=== PATIENT | female | born 1995 | race Caucasian/White ===

== ENCOUNTER 2017-11-26 13:41 | Inpatient (IN) ==
[2017-11-26] MEDS ORDERED: ONDANSETRON 4 MG/2 ML VIAL IV PRN (15:19)
[2017-11-26] MEDS ORDERED: MEPERIDINE 50 MG/1 ML VIAL IV PRN (15:19)
[2017-11-26] MEDS ORDERED: BUTORPHANOL 2 MG/ML VIAL IV PRN (15:19)
[2017-11-26] MEDS ORDERED: DINOPROSTONE VAG GEL 10 MG SYRINGE VAG ONE (15:21)
[2017-11-26 15:51] LABS: Basophils % 0.3 % (0.0-0.8); Eosinophils # 0.1 10*3/uL (0.0-0.87); Hematocrit 30.2 VOL% (35.7-47.0); Hemoglobin 9.8 GM/DL (12.0-16.0); Immature Granulocytes % 0.6 %; Immature Granulocytes Absolute 0.06 #; Lymphocytes # 1.3 10*3/uL (1.4-4.0); Lymphocytes % 13.7 % (21.3-54.2); Mean Corpuscular HGB Conc 32.5 GM/DL (32-36); Mean Corpuscular Hemoglobin 28 PG (27-34); Mean Platelet Volume 11.5 FL (9.6-12.0); Monocytes # 0.8 10*3/uL (0.11-0.8); Neutrophils # 7.3 10*3/uL (1.4-7.4); Neutrophils % 76.4 % (38.7-73.9); Platelet Count 215 T/CUMM (130-400); Red Blood Count 3.47 MC/CUMM (3.8-5.5); Red Cell Distribution Width 13.9 % (9.3-17.3); White Blood Count 9.6 T/CUMM (4-12)
[2017-11-26 16:25] LABS: Albumin 2.9 G/DL (3.4-5.0); Bilirubin,Total 0.6 MG/DL (0.2-1.0); Calcium 7.8 MG/DL (8.5-10.1); Osmolality,Calculated 279.3 MOS/KG (273-304); Potassium 3.4 MMOL/L (3.5-5.1); Total Protein 6.3 G/DL (6.4-8.3); Uric Acid 4.6 MG/DL (2.6-6.0)
[2017-11-26] MEDS ORDERED: LACTATED RINGERS 1,000 ML IV ONE (19:20)
[2017-11-26] MEDS ORDERED: PROMETHAZINE 25 MG/1 ML VIAL IM ONE (19:43)
[2017-11-26] MEDS ORDERED: ONDANSETRON 4 MG/2 ML VIAL IV ONE (19:43)
[2017-11-26] MEDS ORDERED: diphenhydrAMINE 50 MG/1 ML VIAL IV PRN ×2 (19:43)
[2017-11-26] MEDS ORDERED: hydrOXYzine HCL 25 MG/1 ML VIAL IM PRN (19:43)
[2017-11-26] MEDS ORDERED: ePHEDrine 50 MG/ML AMP IV PRN (19:43)
[2017-11-26] MEDS ORDERED: FAMOTIDINE 20 MG/2 ML VIAL IV ONE ×2 (19:43→20:00)
[2017-11-26] MEDS ORDERED: CITRIC ACID/SODIUM CITRATE 30 ML UDCUP PO ONE (19:43)
[2017-11-26] MEDS ORDERED: fentaNYL 2 MCG/ROPIV 0.2% EPID 150 ML EPIDURAL SCH ×2 (20:00)
[2017-11-26] MEDS: LACTATED RINGERS 1,000 ML IV SCH (20:31)
[2017-11-27] MEDS ORDERED: OXYTOCIN/LR 20 UNIT/1,000 ML BAG IV SCH (02:00)
[2017-11-27] MEDS: LACTATED RINGERS 1,000 ML IV SCH (04:28)
[2017-11-27] MEDS ORDERED: BUTORPHANOL 1 MG/ML VIAL ONE (08:58)
[2017-11-27] MEDS ORDERED: LIDOCAINE 1% 50 ML VIAL ONE (08:58)
[2017-11-27 09:54] LABS: Cord Arterial Blood HCO3 18.3 MMOL/L
[2017-11-27 09:55] LABS: Cord Venous Blood HCO3 23.5 MMOL/L; Cord Venous Blood PCO2 51.6 MMHG; Cord Venous Blood PO2 25.7 MMHG
[2017-11-27] MEDS ORDERED: DIPH/TET/ACEL PERT BOOSTER VACCINE 0.5 ML VIAL IM ONE (10:37)
[2017-11-27] MEDS ORDERED: OXYTOCIN/LR 20 UNIT/1,000 ML BAG IV ONE (10:37)
[2017-11-27] MEDS ORDERED: ONDANSETRON 4 MG/2 ML VIAL IV PRN (10:37)
[2017-11-27] MEDS ORDERED: BENZOCAINE 20%/MENTHOL 0.5% SPRAY 56 GM CAN TOP PRN (10:37)
[2017-11-27] MEDS ORDERED: HYDROCORTISONE 2.5% RECTAL CREAM 30 GM TUBE TOP PRN (10:37)
[2017-11-27] MEDS ORDERED: WITCH HAZEL PADS 100/JAR TOP PRN (10:37)
[2017-11-27] MEDS ORDERED: LANOLIN 50% CREAM 0.3 OZ TUBE TOP PRN (10:37)
[2017-11-27] MEDS ORDERED: BISACODYL 10 MG SUPP RECTAL PRN (10:37)
[2017-11-27] MEDS ORDERED: ACETAMINOPHEN 325 MG TABLET PO PRN (10:37)
[2017-11-27] MEDS ORDERED: RHO(D) IMMUNE GLOBULIN 300 MCG SYRINGE IM ONE (10:37)
[2017-11-27] MEDS ORDERED: MEASLES/MUMPS/RUBELLA VACCINE 0.5 ML VIAL SUBCUT ONE (10:37)
[2017-11-27] MEDS ORDERED: oxyCODONE/ACETAMINOPHEN 5-325 MG TABLET PO PRN (10:37)
[2017-11-27] MEDS: oxyCODONE/ACETAMINOPHEN 5-325 MG TABLET PO PRN ×2 (11:12→21:28)
[2017-11-27] MEDS: IBUPROFEN 800 MG TABLET PO PRN (11:14)
[2017-11-27] MEDS: DOCUSATE SODIUM 100 MG CAPSULE PO SCH (21:28)
[2017-11-28 03:24] LABS: Basophils # 0.1 10*3/uL (0.0-0.2); Basophils % 0.4 % (0.0-0.8); Eosinophils # 0.1 10*3/uL (0.0-0.87); Hematocrit 28.3 VOL% (35.7-47.0); Hemoglobin 8.6 GM/DL (12.0-16.0); Immature Granulocytes % 0.9 %; Immature Granulocytes Absolute 0.11 #; Lymphocytes # 2.1 10*3/uL (1.4-4.0); Lymphocytes % 16.8 % (21.3-54.2); Mean Corpuscular HGB Conc 30.4 GM/DL (32-36); Mean Corpuscular Hemoglobin 27 PG (27-34); Mean Corpuscular Volume 87.9 FL (87-102); Mean Platelet Volume 11.7 FL (9.6-12.0); Monocytes # 1.4 10*3/uL (0.11-0.8); Monocytes % 11.2 % (1.7-12.7); Neutrophils # 8.9 10*3/uL (1.4-7.4); Neutrophils % 69.7 % (38.7-73.9); Platelet Count 171 T/CUMM (130-400); Red Blood Count 3.22 MC/CUMM (3.8-5.5); Red Cell Distribution Width 14.1 % (9.3-17.3); White Blood Count 12.7 T/CUMM (4-12)
[2017-11-28] MEDS: IBUPROFEN 800 MG TABLET PO PRN ×2 (08:27→17:48)
[2017-11-28] MEDS: DOCUSATE SODIUM 100 MG CAPSULE PO SCH ×2 (08:27→22:31)
[2017-11-28] MEDS: FERROUS SULFATE 325 MG TABLET PO SCH (22:33)
[2017-11-29] MEDS: IBUPROFEN 800 MG TABLET PO PRN ×2 (02:58→09:04)
[2017-11-29 08:36] VITALS: BP 132/85
[2017-11-29] MEDS: FERROUS SULFATE 325 MG TABLET PO SCH (09:04)
[2017-11-29] MEDS: DOCUSATE SODIUM 100 MG CAPSULE PO SCH (09:04)
== END 2017-11-29 12:10 | disposition home or self-care (01) | DRG 775 ==
LOC: N.LDOUT 13:41 → N.LD 13:43 → N.OB 11-27 17:50
PROVIDERS: ADMIT Obstetrics & Gynecology; ATTEND Obstetrics & Gynecology

== ENCOUNTER 2020-02-08 21:38 | Observation (INO) ==
[2020-02-08] MEDS ORDERED: SODIUM CHLORIDE 0.9% 500 ML IV STA (22:06)
[2020-02-08 23:05] LABS: Basophils % 0.5 % (0.0-0.8); Eosinophils # 0.1 10*3/uL (0.0-0.87); Eosinophils % 1.7 % (0.00-10.9); Hematocrit 33.5 VOL% (35.7-47.0); Hemoglobin 11.4 GM/DL (12.0-16.0); Immature Granulocytes % 0.3 %; Immature Granulocytes Absolute 0.02 #; Lymphocytes # 1.6 10*3/uL (1.4-4.0); Mean Corpuscular Volume 89.1 FL (87-102); Mean Platelet Volume 11.2 FL (9.6-12.0); Monocytes % 10.9 % (1.7-12.7); Neutrophils % 59.6 % (38.7-73.9); Platelet Count 170 T/CUMM (130-400); Red Blood Count 3.76 MC/CUMM (3.8-5.5); Red Cell Distribution Width 12.2 % (9.3-17.3); White Blood Count 5.9 T/CUMM (4-12)
[2020-02-08 23:09] LABS: Bacteria,Urine Occasional /HPF (Few); Bilirubin,Urine Negative (Negative); Blood, Urine Large mg/dL (Negative); Glucose,Urine (UA) Negative (Negative); Ketones,Urine Negative (Negative); Nitrite,Urine Negative (Negative); Protein,Urine Negative; RBC,Urine <1 /HPF (0-4); Squamous Epithelial Cell,Urine Occasional /HPF (0-10); Urine Appearance CLEAR (Clear); Urine Color Straw (Yellow); Urine Specific Gravity 1.003 (1.001-1.035); Urine Urobilinogen < 2.0 EU/DL (0.2-1.0); WBC,Urine 1 /HPF (0-6)
[2020-02-08 23:23] LABS: INR 0.9
[2020-02-08 23:27] LABS: Alanine Aminotransferase 18 U/L (13-56); Albumin 3.3 G/DL (3.4-5.0); Alkaline Phosphatase 70 U/L (45-117); Aspartate Amino Transferase 19 U/L (0-37); Bilirubin,Total < 0.39 MG/DL (0.2-1.0); Blood Urea Nitrogen 4 MG/DL (7-18); Calcium 8.4 MG/DL (8.5-10.1); Estimated Glom Filtration Rate 142 ML/MIN; Glucose 95 MG/DL (74-106); Osmolality,Calculated 271.7 MOS/KG (273-304); Total Protein 7.1 G/DL (6.4-8.3)
[2020-02-09] MEDS ORDERED: ACETAMINOPHEN/CODEINE 300-30 MG TABLET PO PRN (00:28)
[2020-02-09] MEDS ORDERED: ONDANSETRON 4 MG/2 ML VIAL IV PRN (00:28)
[2020-02-09] MEDS ORDERED: SODIUM CHLORIDE 0.9% 1,000 ML IV SCH (00:28)
[2020-02-09] MEDS ORDERED: LACTATED RINGERS 1,000 ML IV SCH (01:00)
[2020-02-09] MEDS: AMPICILLIN INJ 2,000 MG in SODIUM CHLORIDE 0.9% 100 ML IV SCH ×2 (02:06→07:47)
[2020-02-09] MEDS ORDERED: ACETAMINOPHEN 325 MG TABLET PO PRN (07:37)
[2020-02-09 08:40] VITALS: BP 128/89
[2020-02-09] MEDS ORDERED: INFLUENZA VIRUS VACCINE 0.5 ML SYRINGE IM ONE (10:24)
== END 2020-02-09 10:50 | disposition home or self-care (01) ==
LOC: N.EDINP 21:38 → N.ED 21:38 → N.EDINP 02-09 00:10 → N.OB 02-09 00:27
PROVIDERS: ADMIT Obstetrics & Gynecology; ATTEND Obstetrics & Gynecology

== ENCOUNTER 2020-07-24 09:03 | Inpatient (IN) ==
[2020-07-24] MEDS ORDERED: MEPERIDINE 50 MG/1 ML VIAL IV PRN (09:36)
[2020-07-24] MEDS ORDERED: PROMETHAZINE 25 MG/1 ML VIAL IM ONE (09:37)
[2020-07-24] MEDS: LACTATED RINGERS 1,000 ML IV SCH ×2 (09:59→23:15)
[2020-07-24] MEDS: ACETAMINOPHEN 325 MG TABLET PO PRN (15:41)
[2020-07-25] MEDS ORDERED: BUTORPHANOL 2 MG/ML VIAL IV PRN (00:01)
[2020-07-25] MEDS ORDERED: MEPERIDINE 50 MG/1 ML VIAL IM PRN (00:01)
[2020-07-25] MEDS ORDERED: ONDANSETRON 4 MG/2 ML VIAL IV PRN ×2 (00:01→17:20)
[2020-07-25 01:22] LABS: Albumin 2.3 G/DL (3.4-5.0); Bilirubin,Total 0.7 MG/DL (0.2-1.0); Calcium 8.1 MG/DL (8.5-10.1); Osmolality,Calculated 270.7 MOS/KG (273-304); Potassium 3.8 MMOL/L (3.5-5.1); Total Protein 5.9 G/DL (5.0-7.5)
[2020-07-25 01:24] LABS: Basophils % 0.2 % (0.0-0.8); Eosinophils # 0.1 10*3/uL (0.0-0.87); Eosinophils % 0.6 % (0.00-10.9); Hematocrit 31.4 VOL% (35.7-47.0); Hemoglobin 10.4 GM/DL (12.0-16.0); Immature Granulocytes % 0.5 %; Immature Granulocytes Absolute 0.04 #; Lymphocytes # 1.3 10*3/uL (1.4-4.0); Lymphocytes % 15.4 % (21.3-54.2); Mean Corpuscular HGB Conc 33.1 GM/DL (32-36); Mean Corpuscular Volume 84.4 FL (87-102); Mean Platelet Volume 12.5 FL (9.6-12.0); Monocytes % 12.6 % (1.7-12.7); Neutrophils % 70.7 % (38.7-73.9); Platelet Count 159 T/CUMM (130-400); Red Blood Count 3.72 MC/CUMM (3.8-5.5); Red Cell Distribution Width 14.5 % (9.3-17.3); White Blood Count 8.7 T/CUMM (4-12)
[2020-07-25] MEDS: fentaNYL 2 MCG/ROPIV 0.2% EPID 100 ML EPIDURAL SCH ×2 (06:17→15:34)
[2020-07-25] MEDS ORDERED: ePHEDrine 50 MG/ML VIAL IV PRN (06:30)
[2020-07-25] MEDS ORDERED: diphenhydrAMINE 50 MG/1 ML VIAL IV PRN ×2 (06:30)
[2020-07-25] MEDS ORDERED: FAMOTIDINE 20 MG/2 ML VIAL IV ONE (06:30)
[2020-07-25] MEDS ORDERED: CITRIC ACID/SODIUM CITRATE 30 ML UDCUP PO ONE (06:30)
[2020-07-25] MEDS ORDERED: ONDANSETRON 4 MG/2 ML VIAL IV ONE (06:30)
[2020-07-25] MEDS ORDERED: hydrOXYzine HCL 25 MG/1 ML VIAL IM PRN (06:30)
[2020-07-25] MEDS ORDERED: NALOXONE 0.4 MG/ML VIAL IV PRN (06:30)
[2020-07-25] MEDS ORDERED: PROMETHAZINE 25 MG/1 ML VIAL IM ONE (06:30)
[2020-07-25] MEDS: LACTATED RINGERS 1,000 ML IV SCH ×2 (07:24→15:35)
[2020-07-25 08:05] LABS: Bilirubin,Urine Negative (Negative); Blood, Urine Negative (Negative); Glucose,Urine (UA) Negative (Negative); Ketones,Urine Negative (Negative); Mucus,Urine Occasional /LPF (Occasional); Nitrite,Urine Negative (Negative); Protein,Urine Negative; RBC,Urine 5 /HPF (0-4); Urine Appearance CLEAR (Clear); Urine Color Yellow (Yellow); Urine Specific Gravity 1.009 (1.001-1.035); Urine Urobilinogen < 2.0 EU/DL (0.2-1.0); WBC,Urine <1 /HPF (0-6)
[2020-07-25] MEDS ORDERED: OXYTOCIN/LR 20 UNIT/1,000 ML BAG IV SCH (10:00)
[2020-07-25] MEDS: AMPICILLIN INJ 2,000 MG in SODIUM CHLORIDE 0.9% 100 ML IV SCH ×2 (10:13→16:00)
[2020-07-25] MEDS ORDERED: TRANEXAMIC ACID 1,000 MG/10 ML VIAL ONE (16:05)
[2020-07-25] MEDS ORDERED: OXYTOCIN/LR 20 UNIT/1,000 ML BAG IV ONE ×2 (16:05→17:20)
[2020-07-25] MEDS ORDERED: miSOPROStoL 200 MCG TABLET ONE (16:05)
[2020-07-25] MEDS ORDERED: CARBOPROST TROMETHAMINE 250 MCG/ML AMP IM ONE (16:06)
[2020-07-25] MEDS ORDERED: METHYLERGONOVINE 0.2 MG/1 ML AMP ONE (16:06)
[2020-07-25 16:39] LABS: Cord Arterial Blood HCO3 24.1 MMOL/L
[2020-07-25 16:42] LABS: Cord Venous Blood PCO2 40.3 MMHG
[2020-07-25] MEDS ORDERED: HYDROCORTISONE 2.5% RECTAL CREAM 30 GM TUBE TOP PRN (17:20)
[2020-07-25] MEDS ORDERED: BISACODYL 10 MG SUPP RECTAL PRN (17:20)
[2020-07-25] MEDS ORDERED: LANOLIN 50% CREAM 0.3 OZ TUBE TOP PRN (17:20)
[2020-07-25] MEDS ORDERED: WITCH HAZEL PADS 100/JAR TOP PRN (17:20)
[2020-07-25] MEDS ORDERED: BENZOCAINE 20%/MENTHOL 0.5% SPRAY 56 GM CAN TOP PRN (17:20)
[2020-07-25] MEDS ORDERED: oxyCODONE/ACETAMINOPHEN 5-325 MG TABLET PO PRN ×2 (17:20)
[2020-07-25] MEDS ORDERED: DIPH/TET/ACEL PERT BOOSTER VACCINE 0.5 ML VIAL IM ONE (17:20)
[2020-07-25] MEDS ORDERED: MEASLES/MUMPS/RUBELLA VACCINE 0.5 ML VIAL SUBCUT ONE (17:20)
[2020-07-25] MEDS ORDERED: RHO(D) IMMUNE GLOBULIN 300 MCG SYRINGE IM ONE (17:20)
[2020-07-25] MEDS ORDERED: ACETAMINOPHEN 325 MG TABLET PO PRN (17:20)
[2020-07-25] MEDS: ACETAMINOPHEN 325 MG TABLET PO PRN (18:23)
[2020-07-25] MEDS: DOCUSATE SODIUM 100 MG CAPSULE PO SCH (21:26)
[2020-07-25] MEDS: IBUPROFEN 800 MG TABLET PO PRN (21:26)
[2020-07-25] MEDS ORDERED: AMPICILLIN INJ 2,000 MG in SODIUM CHLORIDE 0.9% 100 ML IV ONE (22:30)
[2020-07-26 06:08] LABS: Basophils # 0.1 10*3/uL (0.0-0.2); Basophils % 0.5 % (0.0-0.8); Eosinophils # 0.2 10*3/uL (0.0-0.87); Eosinophils % 1.3 % (0.00-10.9); Hematocrit 31.2 VOL% (35.7-47.0); Hemoglobin 10.1 GM/DL (12.0-16.0); Immature Granulocytes % 0.5 %; Immature Granulocytes Absolute 0.06 #; Lymphocytes # 2.3 10*3/uL (1.4-4.0); Lymphocytes % 19.8 % (21.3-54.2); Mean Corpuscular HGB Conc 32.4 GM/DL (32-36); Mean Corpuscular Volume 85.7 FL (87-102); Mean Platelet Volume 12.1 FL (9.6-12.0); Monocytes % 11.5 % (1.7-12.7); Neutrophils % 66.4 % (38.7-73.9); Platelet Count 165 T/CUMM (130-400); Red Blood Count 3.64 MC/CUMM (3.8-5.5); Red Cell Distribution Width 14.3 % (9.3-17.3); White Blood Count 11.5 T/CUMM (4-12)
[2020-07-26] MEDS ORDERED: ACETAMINOPHEN 500 MG TABLET ONE (08:10)
[2020-07-26] MEDS ORDERED: ACETAMINOPHEN 500 MG TABLET PO PRN (08:11)
[2020-07-26] MEDS: DOCUSATE SODIUM 100 MG CAPSULE PO SCH ×2 (08:15→20:23)
[2020-07-26] MEDS: IBUPROFEN 800 MG TABLET PO PRN ×2 (08:15→20:23)
[2020-07-27] MEDS: IBUPROFEN 800 MG TABLET PO PRN (04:05)
[2020-07-27 08:36] VITALS: BP 136/81
[2020-07-27] MEDS: DOCUSATE SODIUM 100 MG CAPSULE PO SCH (08:59)
== END 2020-07-27 12:00 | disposition home or self-care (01) | DRG 805 ==
LOC: N.LDOUT 09:03 → N.LD 09:05 → N.OB 07-25 19:45
PROVIDERS: ADMIT Obstetrics & Gynecology; ATTEND Obstetrics & Gynecology